=== PATIENT | female | born 1945 | race Caucasian/White ===

== ENCOUNTER 2024-10-22 05:42 | Observation (INO) | payer MEDICARE ==
--- NOTE | 2024-10-20 10:39 | EKG ---
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
[2024-10-20 10:53] VITALS: BP 166/74; PULSE 87; RESP 18; TEMP 97
[2024-10-20 11:10] LABS: APPEARANCE,URINE CLEAR (CLEAR); GLUCOSE, URINE (UA) 150 mg/dL (NEGATIVE); LEUKOCYTE ESTERASE ,URINE NEGATIVE Leu/uL (NEGATIVE); NITRATE,URINE NEGATIVE (NEGATIVE); OCCULT BLOOD,URINE NEGATIVE (NEGATIVE)
[2024-10-20 11:11] LABS: CREATININE 2.3 mg/dL (0.5-1.0); GLOMERULAR FILTR. RATE CALC 21.0 mL/min (>90); GLUCOSE,RANDOM 105.0 mg/dL (70-105); SODIUM SERUM 141.0 mmol/L (136-145); UREA NITROGEN, BLOOD 38.0 mg/dL (7-18)
[2024-10-20 11:13] LABS: IMMATURE GRANULOCYTE ABSOLUTE 0.01 K/uL (0-1); NUCLEATED RED BLOOD CELLS 0.0 % (0.0-0.19); PLATELET COUNT (AUTO) 202 K/uL (130-400); RED BLOOD CELL COUNT(AUTO) 3.30 MIL/uL (4.00-5.50); RED CELL DISTRIBUTION WIDTH 12.8 % (11.0-15.5); WHITE BLOOD COUNT (AUTO) 4.4 K/uL (4.8-10.8)
[2024-10-20 11:24] LABS: ADD UA MICROSCOPIC YES
[2024-10-20 11:33] LABS: SQUAMOUS EPITHELIAL CELL,UR Rare /HPF (0-2)
[2024-10-20 12:10] LABS: INR 0.98 (0.85-1.15)
--- NOTE | 2024-10-21 05:42 | HMCIMG ---
EXAM: DX Chest, 1 view. CLINICAL HISTORY: Preoperative evaluation. COMPARISON: None. FINDINGS: Mild cardiomegaly and pulmonary vascular congestion. Questionable small pleural effusions bilaterally. Mild COPD. No pneumothorax. No acute osseous abnormality. Osteopenia. Degenerative osseous changes. 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 IMPRESSION: Mild cardiomegaly and pulmonary vascular congestion. Questionable small pleural effusions bilaterally. Mild COPD. /[place]
--- NOTE | 2024-10-21 13:50 | NUR ---
RE: LABS/CXR REPORTED CXR RESULTS TO COLEMAN STARKEY NP AND BMP RESULTS, NO NEW ORDERS RECEIVED. (PATIENT HAS ORDERS FOR IV HYDRATION)
[2024-10-22] VITALS (9 sets, daily range): BP systolic 126–153; BP diastolic 61–69; PULSE 59–91; RESP 18–20; TEMP 97.8–98; O2SAT 96
[~2024-10-22] VITALS: Ht 157.5 cm; Wt 81.1 kg
[~2024-10-22 05:42] MED LIST: ACET-3305 PO; AMLO-258 PO; ATOR20TA65 PO; DAPA10TA PO; FERS325 PO; HYDR25TA67 PO; SODI650T PO
[2024-10-22] MEDS: 0.9%NACL 1000ML 1,000 ML IV ONE (06:00)
[2024-10-22 08:07] LABS: CREATININE 2.3 mg/dL (0.5-1.0); GLOMERULAR FILTR. RATE CALC 21.0 mL/min (>90); GLUCOSE,RANDOM 98.0 mg/dL (70-105); SODIUM SERUM 142.0 mmol/L (136-145); UREA NITROGEN, BLOOD 40.0 mg/dL (7-18)
[2024-10-22] MEDS ORDERED: LIDOCAINE HCL 400MG/20ML VIAL ONE (15:12)
[2024-10-22] MEDS ORDERED: SODIUM BICARB 50MEQ 50ML VIAL 50 ML ONE (15:13)
[2024-10-22] MEDS ORDERED: HEParin-NS 1,000 UNIT/500 ML 1,000 ML IV ONE (15:13)
[2024-10-22] MEDS ORDERED: IOHEXOL 350 MG/ML 100ML INFUS..BTL IV ONE (15:13)
[2024-10-22] MEDS ORDERED: NITROGLYCERIN 50MG VIAL ONE (15:13)
[2024-10-22] MEDS ORDERED: MIDAZOLAM HCL 1 MG/ML 2ML VIAL ONE ×2 (15:33→15:42)
[2024-10-22] MEDS ORDERED: HEParin-NS 1,000 UNIT/500 ML 500 ML IV ONE (15:33)
[2024-10-22] MEDS: 0.9%NACL 1000ML 1,000 ML IV SCH (17:00)
[2024-10-22] MEDS ORDERED: DEXTROSE 50%-WATER 50 ML DISP.SYRIN IV PRN (17:00)
[2024-10-22] MEDS ORDERED: GLUCAGON 1MG KIT 1 MG ML IM PRN (17:00)
--- NOTE | 2024-10-22 17:30 | NUR ---
Patient arrived to unit via bed. Daughter at bedside. Alert and oriented x 4. Denies pain. Dressing to right groin clean, dry and intact. Will remain supine until 2430 this evening. Patient oriented to room and to unit. Post cath procedure assessments initiated.
--- NOTE | 2024-10-22 17:37 | CCATH ---
PROCEDURES: * Right and left heart catheterization. * Selective right and left coronary arteriogram. * Conscious sedation for 60 minutes. INDICATIONS: Diagnosis of severe aortic stenosis by echocardiography. COMPLICATIONS: None. TOTAL CONTRAST: 20 mL. DESCRIPTION OF PROCEDURE: The study was performed with limited images due to chronic kidney disease with a GFR of 21 to minimize contrast use. Ventriculography was not performed. The patient was taken to the cardiac catheterization lab after appropriate operative consents were signed. She was prepped and draped in the usual fashion. After conscious sedation was administered, the right common femoral artery and common femoral vein regions were infiltrated with 2% Xylocaine without epinephrine. A 7-Turkmen sheath was advanced in the right common femoral vein in a retrograde fashion with a modified Seldinger technique. The 6 x 45 sheath was advanced in the right common femoral artery in a retrograde fashion by the modified Seldinger technique and placed over an indwelling wire in the thoracic aorta. At this point, we utilized a multipurpose catheter 1, which was placed in the ascending aorta. We utilized a straight wire. We were able to cross into the left ventricular cavity with the multipurpose 1. At this point, we were able to exchange that catheter over an indwelling J-wire for a 5-Turkmen pigtail catheter. At this point, [place]-Laila catheter was advanced under fluoroscopic guidance and placed in the right atrium, right ventricle, PA, and pulmonary capillary wedge positions. The pressures were measured and recorded. Simultaneous left ventricular end-diastolic pressure and wedge pressure measurements were obtained. There was no gradient across the mitral valve. The right atrial pressure was low as was the pulmonary capillary wedge pressure. The simultaneous measurement of left ventricular systolic pressure and aortic thoracic pressure surprisingly revealed only a mild degree of aortic stenosis with a gradient of 20 mmHg. This was confirmed by pullback. At this point, an FR4 6-Turkmen catheter was advanced to selectively engage the right coronary artery. Imaging was obtained in the AUSTRALIAN projection, which revealed a very large right coronary artery, gave rise to an acute marginal, a PDA, and a branching PLVB. No stenotic lesions were identified. An FL4 6-Turkmen catheter was then advanced to selectively engage the ostium of the left main. Imaging was obtained in multiplane. The left main was short, enlarged, and free of disease. It gave rise to an LAD and a circumflex. LAD was a large vessel that gave rise to a very large diagonal. The ongoing LAD was large and free of disease as was the rest of the LAD system. Circumflex coronary artery gave rise to a moderately sized branching OM and an ongoing smaller circ. There were no significant stenotic lesions. At this point, cardiac output was performed. The right common femoral sheath was managed with a Mynx and a Vascade was utilized for the right common femoral venous sheath. The patient tolerated the procedure well and left the cardiac catheterization lab in stable condition. FINAL IMPRESSION: * Normal large coronary arteries. * Mild aortic stenosis. PLAN: Continue medical management. TID: [id number] RECEIPT: [id number]
[2024-10-22] MEDS: amLODIPine 5 MG TAB PO SCH (21:19)
--- NOTE | 2024-10-22 21:20 | NUR ---
MEDS AWAKENED PT FOR DUE MEDS. SHIFT ASSESSMENT DONE, PLEASE REFER TO CHART. PT STILL ON BED REST AT THIS TIME. DUE MEDS ADMINISTERED, TOLERATED WELL. KEPT RESTED AND COMFORTABLE IN BED. PLACED PT ON TELE MONITORING, SR WITH HR=67. CALL LIGHT WITHIN REACH. FAMILY AT BEDSIDE.
--- NOTE | 2024-10-22 23:24 | HP ---
[facility] HISTORY & PHYSICAL Date Patient Seen: Oct 22, 2024 Time of Visit: 23:23 Supervising Physician: Sesar Dorsey MD Primary Care Physician: Cruz Ramos MD Outpatient Specialists: [ ] Inpatient Consults: Brenda Mills Cardio PROBLEM LIST: Severe aortic stenosis per 2D echo status post cardiac catheterization and cor onary angiography with findings of mild aortic stenosis, done on 10/22/2024. CKD IV. Hypertension. Anemia. Hyperlipidemia. Severe OA HPI: This is a 79-year-old female patient who has a past medical history that is significant for hypertension, severe OA, anemia, hyperlipidemia and CKD IV. The patient was previously referred to Cardiology by her PCP. A 2D echo was done and results of this study unfortunately reveal severe aortic stenosis. Plans for management were discussed with the patient and family members. With the inclusion of conservative management considering her stage IV CKD. Ultimately, the decision was made to bring the patient in for elective cardiac catheterization and coronary angiography which was carried out today 10/23/2024. Based on the report of the study the aortic stenosis was found to be mild and coronary angiography showed normal large coronary arteries. Keeping in mind the recent study performed and the patient CKD, the plan was made to admit the p atient for further inpatient monitoring and IV hydration. During my visit, the patient was in her assigned room and a daughter was present at the bedside. The staff nurse reports no acute events since admission. Vital signs were generally stable. Chemistry panel obtained today showed no major changes of kidney parameters. No other complaint. PAST MEDICAL HX: see above PAST SURGICAL HX: noncontributory SOCIAL HISTORY: No tobacco, ETOH, or illicit drug use Coded Allergies: Penicillins (Unverified Allergy, Unknown, 10/20/24) REVIEW OF SYSTEMS: 12 point ROS reviewed with patient. Pertinent positives mentioned above. Otherwise negative. PHYSICAL EXAM: GENERAL: Alert, weak, awake oriented x 3 HEENT: EOMI, Sclera non icteric, moist mucosa NECK: Supple, no JVD, trachea midline LUNGS: Clear breath sounds bilaterally. No wheezes HEART: Regular rate and rhythm. Normal S1 and S2, without murmurs ABD: Abdomen soft, nontender. Bowel sounds present EXT: No clubbing cyanosis or edema NEURO: Alert and oriented to person, follows commands Vital Signs (last 8hr) Date Time Temp Pulse Resp B/P (MAP) Pulse Ox O2 Delivery O2 Flow Rate FiO2 8/1/25 17:45 97.9 68 18 142/66 97 Room Air 10/22/24 17:30 96 Room Air* 0 21 LABS: Chemistry Labs: Test 10/22/24 21:38 10/22/24 07:44 Range/Units Whole Blood Glucose 96 70-110 MG/DL Sodium Level 142 136-145 mmol/L Potassium Level 3.7 3.5-5.1 mmol/L Chloride Level 108 101-111 mmol/L Carbon Dioxide Level 24 21-32 mmol/L Blood Urea Nitrogen 40 H 7-18 mg/dL Creatinine 2.3 H 0.5-1.0 mg/dL Glomerular Filtration Rate Calc 21 >90 mL/min Random Glucose 98 70-105 mg/dL Total Calcium 9.1 8.5-10.1 mg/dL B-Type Natriuretic Peptide 60 0-100 pg/mL DIAGNOSTICS / RADIOLOGY RESULTS: [ ] PLAN Admit observation status, to medical/surgical. Consistent carb/low-salt diet We will review and reconcile medication list once they become available. Continue IV hydration with IV NS. Consult cardiology and follow cardiology recommendation Repeat surveillance labs in the morning. SCDs for DVT prophylaxis. Protonix 40 mg p.o. daily for GI prophylaxis. Monitor the patient's progress and response to management. Continue to provide general supportive care, GI and DVT prophylaxis. Further orders per attending MD and hospital course. NEURO: Minimize central acting medications as possible. Maintain fall precautions, adequate lighting during the day PULMONARY: Supplemental 02 as needed. Maintain aspiration precautions at all times CARDIOVASCULAR: Follow hemodynamics. Vital signs per facility protocol GI & NUTRITION: Continue with nutritional support. Continue stool softeners and laxatives as needed. KIDNEYS & ELECTROLYTES: Strict monitoring of intake, output and overall fluid balance. Avoid nephrotoxic medications to the extent possible. Medications to be dosed according to renal function. Monitor electrolytes and replace as needed ENDOCRINE: Maintain blood glucose between 100-180 at all times. Hypoglycemia protocol in place INFECTIOUS DISEASE: Trend temperature, WBC and procalcitonin level Follow cultures, deescalate antibiotics as soon as possible. Panculture if new onset fever ONCOLOGY/HEMATOLOGY/COAGULATION: Monitor for s/s of bleeding Monitor hemoglobin, coagulation studies as needed SKIN: Pressure ulcer prevention per facility protocol Specialty mattress ORTHO/REHAB: Continue PT/OT Prophylaxis: Continue GI and DVT prophylaxis Code Status: Full Resuscitation Disposition: TBD Other: Patient was seen by me. Supervising MER [address] NP Oct 22, 2024 23:24
[2024-10-23] VITALS: BP 126/62; PULSE 63; RESP 18; TEMP 98
[2024-10-23 04:00] VITALS: BP_SYST 114; BP_SYST 131; BP_DIAS 47; BP_DIAS 51; PULSE 72; PULSE 79; RESP 16; RESP 19; TEMP 98.2
[2024-10-23 05:23] LABS: NUCLEATED RED BLOOD CELLS 0.0 % (0.0-0.19); PLATELET COUNT (AUTO) 147.0 K/uL (130-400); RED BLOOD CELL COUNT(AUTO) 2.87 MIL/uL (4.00-5.50); RED CELL DISTRIBUTION WIDTH 12.6 % (11.0-15.5); WHITE BLOOD COUNT (AUTO) 5.4 K/uL (4.8-10.8)
[2024-10-23 05:32] LABS: CREATININE 1.9 mg/dL (0.5-1.0); GLOMERULAR FILTR. RATE CALC 27.0 mL/min (>90); GLUCOSE,RANDOM 86.0 mg/dL (70-105); SODIUM SERUM 144.0 mmol/L (136-145); UREA NITROGEN, BLOOD 33.0 mg/dL (7-18)
--- NOTE | 2024-10-23 05:58 | NUR ---
SL PT IS ALREADY AWAKE AND SITTING UP IN BED. PT SLEPT AT INTERVALS DURING THE SHIFT. DENIES ANY PAINS NOR DISCOMFORT AT THIS TIME. NO DISTRESS NOTED. SALINE LOCKED PIV ORDERED. KEPT RESTED AND COMFORTABLE IN BED. FOR MORE CARE.
[2024-10-23 08:00] VITALS: BP 135/64; PULSE 72; RESP 17; TEMP 97.8
--- NOTE | 2024-10-23 09:04 | PN ---
[facility] CARDIOLOGY PROGRESS NOTE Date Patient Seen: Oct 23, 2024 Time of Visit: 08:58 Interval History: This is a 79-year-old white female with a past medical history of chronic kidney disease stage 4, hypertension, severe osteoarthritis, chronic anemia, hyp erlipidemia, who was noted to have evidence of severe aortic stenosis with peak aortic valve gradient of 68 mmHg, mean aortic valve gradient of 45 mmHg and aortic valve area of 0.9 cm2 by prior 2D echocardiogram August 2024. In addition she has nocturnal bradycardia into the 40 beat per minute range on recent outpatient monitor July 2024. She underwent a right and left heart catheterization on 10/22/2024 which did not confirm severe aortic stenosis and indeed has evidence of only mild aortic stenosis with peak aortic valve gradient of 20 mmHg and aortic valve area of 1.6 cm2. She had normal coronary arteries and plans are to continue medical therapy. She was admitted overnight for IV fluid hydration. This morning her creatinine is 1.8. Hemoglobin is 8.8 from prior hemoglobin of 10.1. There has been no evidence of active bleeding. She denies any abdominal pain, dyspnea, orthopnea or PND. The right groin cath site is soft and free of any hematoma. Her drop in hemoglobin may have been related to IV fluid hydration. She admits to not taking her iron supplements earlier this week. Otherwise, she has been stable overnight. Physical Examination: GENERAL: No acute distress. HEAD: Normal with no signs of head trauma. EYES: PERRLA, EOMI, conjunctiva and sclera normal. NECK: Supple without JVD. There is no tenderness, lymphadenopathy, or masses. No thyromegaly. Normal carotid upstrokes without bruits. LUNGS: Clear breath sounds bilaterally. No wheezes, or rhonchi. HEART: Normal rate and rhythm. Normal S1 and S2 there is a 2/6 late-peaking systolic ejection murmur at the right upper sternal border. VASC: Peripheral pulses +2 bilaterally. EXT: No clubbing, cyanosis or edema. The right groin catheterization puncture site is without bruising or hematoma. Site is soft. NEURO: Awake, alert, and oriented x3. No focal neurological deficits noted. Laboratory: Hematology Labs: Test 10/23/24 05:12 Range/Units White Blood Count 5.4 4.8-10.8 K/uL Red Blood Count 2.87 L 4.00-5.50 MIL/uL Hemoglobin 8.8 L 12.0-16.0 g/dL Hematocrit 27.3 L 36-48 % Mean Corpuscular Volume 95.1 79-99 fL Mean Corpuscular Hemoglobin 30.7 27.0-33.0 pg Mean Corpuscular Hemoglobin Concent 32.2 32.0-36.0 g/dL Red Cell Distribution Width 12.6 11.0-15.5 % Platelet Count 147 # 130-400 K/uL Mean Platelet Volume 8.3 7.5-10.5 fL Nucleated Red Blood Cells 0.0 0.0-0.19 % Chemistry Labs: Test 10/23/24 05:12 10/23/24 05:09 10/22/24 07:44 Range/Units Sodium Level 144 136-145 mmol/L Potassium Level 3.9 3.5-5.1 mmol/L Chloride Level 111 101-111 mmol/L Carbon Dioxide Level 24 21-32 mmol/L Blood Urea Nitrogen 33 H 7-18 mg/dL Creatinine 1.9 H 0.5-1.0 mg/dL Glomerular Filtration Rate Calc 27 >90 mL/min Random Glucose 86 70-105 mg/dL Total Calcium 8.1 L 8.5-10.1 mg/dL Whole Blood Glucose 86 70-110 MG/DL B-Type Natriuretic Peptide 60 0-100 pg/mL Diagnostics / Radiology: Impression and Plan: Normal coronary arteries by cardiac catheterization 10/22/2024 Mild aortic stenosis with peak aortic valve gradient of 20 mmHg and aortic valve area of 1.6 cm2 by cardiac catheterization 10/22/2024: -the patient will continue with medical management -no evidence of acute blood loss and her hemoglobin of 8.8 is likely related to hemodilution -we will repeat H&H and if stable, cleared for discharge home today -she will continue her iron supplementations and follow up with Nephrology regarding continued management of her anemia and chronic kidney disease -arrange outpatient follow-up with Dr. Mills in 1-2 weeks Comorbidities: Chronic kidney disease stage 4 with creatinine of 1.8 today Hypertension Severe osteoarthritis Hyperlipidemia Chronic anemia PHYSICIAN ATTESTATION OF PHYSICIAN ARCHEOLOGY FACULTY MEMBER DOCUMENTATION: I attest that I was physically present for the sanders portions of the service and evaluated the patient with the Physician Informal Waiter/Waitress, and I reviewed and discussed the case with the Physician Informal Waiter/Waitress and made modifications to the Physician Informal Waiter/Waitress's findings and plans of care as documented above DONNIE MINER Oct 23, 2024 09:04 ANN-MARIE OVIEDO MD Oct 27, 2024 09:52
[2024-10-23 09:14] LABS: NUCLEATED RED BLOOD CELLS 0.0 % (0.0-0.19); PLATELET COUNT (AUTO) 151.0 K/uL (130-400); RED BLOOD CELL COUNT(AUTO) 2.96 MIL/uL (4.00-5.50); RED CELL DISTRIBUTION WIDTH 12.7 % (11.0-15.5); WHITE BLOOD COUNT (AUTO) 6.1 K/uL (4.8-10.8)
[2024-10-23] MEDS: EMPAGLIFLOZIN 25MG TABLET PO SCH (09:28)
[2024-10-23] MEDS: FERROUS SULFATE 325 MG TABLET.DR PO SCH (09:28)
[2024-10-23 09:30] VITALS: O2SAT 97
--- NOTE | 2024-10-23 11:37 | DS ---
[facility] DISCHARGE SUMMARY Date Patient Seen: Oct 23, 2024 Time of Visit: 11:33 Supervising Physician: [Dr Dorsey Primary Care Physician: Cruz Ramos MD Outpatient Specialists: [ ] Inpatient Consults: Brenda Mills Cardio PROBLEM LIST: Severe aortic stenosis per 2D echo status post cardiac catheterization and coronary angiography with findings of mild aortic stenosis, done on 10/22/2024. CKD IV. -improved to baseline Hypertension. Anemia of chronic disease - stable Hyperlipidemia. Severe OA HOSPITAL COURSE: HPI (per admitting provider) This is a 79-year-old female patient who has a past medical history that is significant for hypertension, severe OA, anemia, hyperlipidemia and CKD IV. The patient was previously referred to Cardiology by her PCP. A 2D echo was done and results of this study unfortunately reveal severe aortic stenosis. Plans for management were discussed with the patient and family members. With the inclusion of conservative management considering her stage IV CKD. Ultimately, the decision was made to bring the patient in for elective cardiac catheterization and coronary angiography which was carried out today 10/23/2024. Based on the report of the study the aortic stenosis was found to be mild and coronary angiography showed normal large coronary arteries. Keeping in mind the recent study performed and the patient CKD, the plan was made to admit the patient for further inpatient monitoring and IV hydration. During my visit, the patient was in her assigned room and a daughter was present at the bedside. The staff nurse reports no acute events since admission. Vital signs were generally stable. Chemistry panel obtained today showed no major changes of kidney parameters. No other complaint. Today patient is seen sitting up in bed accompanied by family with no signs of a cute distress. Patient underwent a right and left heart catheterization and did not confirmed severe aortic stenosis and indeed has evidence of only mild aortic stenosis. Patient had normal coronary arteries and recommendations from Cardiology standpoint is to continue medical therapy. Discussed this case with Cardiology one-to-one and agreed patient has been cleared for discharge. Vital signs are stable. Labs are within normal limits. Patient has been advised to follow up with PCP in the next 1-2 days. Patient has been advised to follow up with Cardiology within 1 week. Patient has been advised to continue cardioprotective medications as prescribed by her manager data center. Patient verbalized understanding. Medication reconciliation has been completed. Education regarding current diagnosis has been provided to the patient. All questions have been answered. Patient to be Discharged home. The patient was treated for the following problems: ACTIVE PROBLEM LIST FOR THE HOSPITALIZATION: Severe aortic stenosis per 2D echo status post cardiac catheterization and coronary angiography with findings of mild aortic stenosis, done on 10/22/2024. CKD IV. -improved to baseline Hypertension. Anemia of chronic disease - stable Hyperlipidemia. Severe OA CHRONIC PROBLEMS: continue previous management per PCP unless otherwise indicated CROP NUTRITION SCIENTIST FINDINGS/RECOMMENDATIONS: [ ] PROCEDURES: as mentioned above DISCHARGE MEDICATIONS: See DC med rec Pt hemodynamically stable and afebrile at time of discharge. PCP notified of patients admission, hospital course and discharge. Continued Medications: Acetaminophen (Arthritis Pain) 650 Mg Tablet.er 650 MG PO [id number] PRN for PAIN, TAB Amlodipine Besylate (Amlodipine Besylate) 10 Mg Tablet 10 MG PO HS for 30 Days, #30 TAB 0 Refills Atorvastatin Calcium (Atorvastatin Calcium) 20 Mg Tablet 20 MG PO HS, TAB Dapagliflozin Propanediol (Farxiga) 10 Mg Tablet 10 MG PO DAILYBKFST, TAB Ferrous Sulfate (Ferrous Sulfate) 325 Mg (65 Mg Iron) Ectab 325 MG PO DAILY, TAB.EC Hydralazine HCl (Hydralazine HCl) 25 Mg Tablet 25 MG PO BID, TAB Sodium Bicarbonate (Sodium Bicarbonate) 650 Mg Tablet 650 MG PO BID, TAB PHYSICAL EXAM: GENERAL: Alert, weak, awake oriented x 3 HEENT: EOMI, Sclera non icteric, moist mucosa NECK: Supple, no JVD, trachea midline LUNGS: Clear breath sounds bilaterally. No wheezes HEART: Regular rate and rhythm. Normal S1 and S2, without murmurs ABD: Abdomen soft, nontender. Bowel sounds present EXT: No clubbing cyanosis or edema NEURO: Alert and oriented to person, follows commands FOLLOW-UP: Follow-up with PCP in 2-3 days Follow up with Dr. Mills in 1-2 weeks Follow up with Nephrology in 1-2 weeks RECOMMENDATIONS: See Discharge Instructions This case was seen and discussed with my supervising physician. More than 30 minutes spent on discharge process, including evaluation of the patient, discussion with nursing staff, medication reconciliation and follow-up appointments ATTESTATION BY PHYSICIAN I have evaluated the patient chart, medical records, and spoke with appropriate staff. I reviewed the documentation, medical decision making, and treatment plan as noted by the mid-level provider above. I agree with the findings and plan of care. Sesar Dorsey MD,JAGDEEP N TELEGRAPH EQUIPMENT MAINTAINER Oct 23, 2024 11:37
[2024-10-23 12:03] VITALS: BP 130/68; PULSE 73; RESP 17; TEMP 97.9
--- NOTE | 2024-10-23 12:49 | NUR ---
DISCHARGED PT WAS EDUCATED ON THE IMPORTANCE OF MONITORING FOR S/S OF INFECTION ON PUNCTURE SITE. POST CATH INSTRUCTIONS WERE VERBALIZED & PT VERBALIZED UNDERSTANDING. IV WAS REMOVED WITHOUT COMPLICATIONS & TELE WAS REMOVED. PT WAS TRANSPORTED TO THE MAIN ENTRANCE VIA W/C BY DIESEL ENGINE MECHANIC APPRENTICE. NO S/S OF DISTRESS NOTED.
--- NOTE | 2024-10-23 15:39 | NUR ---
DCP: INITIAL ASSESSMENT Patient lives alone. She has no home services. Patient has rollator and BPM. Patient is able to complete ADLs independently and drives. PCP is Dr. Cruz Ramos. Pharmacy is [facility] in [place]. Patient voiced no safety concerns regarding returning home and states she has no difficulty with housing or buying food. DCP is home. Addendum: 10/23/24 at 1541 by YARI GAN SS Amended: Links added.
== END 2024-10-23 12:49 | disposition home or self-care (01) ==
LOC: DAH 05:42 → DAHIP 05:43 → DAH 05:43 → DAHIP 05:43 → 4DH 15:30
PROVIDERS: ADMIT Internal Medicine Critical Care Medicine; ATTEND Internal Medicine Critical Care Medicine
DX: I20.9 Angina pectoris, unspecified (principal); I12.9 Hypertensive chronic kidney disease with stage 1 through stage 4 chronic kidney disease, or unspecified chronic kidney disease; N18.4 Chronic kidney disease, stage 4 (severe); I35.0 Nonrheumatic aortic (valve) stenosis; E78.5 Hyperlipidemia, unspecified; D63.1 Anemia in chronic kidney disease; M19.90 Unspecified osteoarthritis, unspecified site; Z88.0 Allergy status to penicillin; Z79.899 Other long term (current) drug therapy
CPT/HCPCS: 80048 ×3; 83880 ×2; 85025; 85610; 85730; 81001; 36415 ×3; 71045; 93005; 93460; 99156; 99157 ×3; 96360; 96361; 82948 ×3; 85027 ×2; C1769 ×2; C1894 ×3; C1893; C1760 ×2; Q9965; G0378 ×20; J3010; J3490 ×3; J2250 ×2; J1644 ×2; Q9967; A4215; A4223 ×3; A4222; A4221; A4663; A4216; A4606